=== PATIENT | male | born 1995 | race Caucasian/White ===

== ENCOUNTER 2018-02-11 21:04 | Emergency (ER) | payer OTHER ==
[~2018-02-11] VITALS: Ht 170.2 cm; Wt 76.4 kg
[~2018-02-11 21:04] MED LIST: ONDA4TAB7 SL
[2018-02-11 21:06] VITALS: TEMP 37.7; Ht 170.2 cm; Wt 76.4 kg
[2018-02-11] MEDS ORDERED: KETOROLAC TROMETHAMINE 30 MG/ML VIAL IV STA (21:19)
[2018-02-11] MEDS ORDERED: SODIUM CHLORIDE 0.9% 1000ML 2,000 ML IV STA (21:19)
[2018-02-11] MEDS ORDERED: ACETAMINOPHEN 500 MG TAB PO STA (21:19)
[2018-02-11] MEDS ORDERED: ONDANSETRON INJ 2 MG/ML 2 ML VIAL IV STA (21:19)
--- NOTE | 2018-02-11 21:38 | EMERGENCY ROOM VISIT NOTE ---
History Report prepared by Jeremy: Sameera Vann Under the Supervision of: Dr. Yaya Ram M.D. First contact with patient: 21:14 Chief Complaint: NAUSEA Stated Complaint: NAUSEA History of Present Illness The patient is a 22 year old male who presents to the Emergency Room with complaints of intermittent abdominal pain since this morning. He rates his abdominal pain a 7/10 in severity. He states that he felt nauseated this morning and has been vomiting. He notes that he cannot keep anything down. He notes that his abdominal pain seems to resolve after he vomits. He has chills and a low grade fever. He denies any diarrhea. He denies any underlying medical problems. He reports a headache, for which he has taken Aleve. He currently rates his headache a 4/10 in severity. He denies any sore throat. The patient' s girlfriend has had vomiting and diarrhea for 36 hours, which has resolved for at least two days. She states that she did not vomit as much and she was not hospitalized. Source of History: patient, spouse/significant other Onset: since this morning Position: abdomen Symptom Intensity: 7/10 Timing: intermittent Associated Symptoms: + fevers, + chills, + headache, + nausea, + vomiting, No sorethroat, No diarrhea Review of Systems See HPI for pertinent positives & negatives. A total of 10 systems reviewed and were otherwise negative. Past Medical & Surgical Medical Problems: (1) Abdominal pain (2) Acute gastroenteritis (3) Asthma (4) Nausea, vomiting, and diarrhea Family History No significant family history Social History Smoking Status: Never Smoker (1 can a day) Smokeless Tobacco Use: Yes Alcohol Use: heavy (1 beer a night) Marital Status: in relationship Housing Status: lives with significant other Occupation Status: employed Current/Historical Medications Scheduled Ondasetron Odt (Zofran Odt), 4 MG SL Q6H Allergies Coded Allergies: Amoxicillin (Verified Allergy, Intermediate, agitated, 02/11/18) Physical Exam Vital Signs Date Time Temp Pulse Resp B/P (MAP) Pulse Ox O2 Delivery O2 Flow Rate FiO2 02/11/18 22:34 88 18 110/65 99 Room Air 02/11/18 21:06 37.7 108 20 106/67 98 Room Air Physical Exam GENERAL: Patient is in no acute distress. HEENT: No acute trauma, normocephalic atraumatic, mucous membranes moist, no nasal congestion, no scleral icterus. No throat erythema or exudate. NECK: No stridor, no adenopathy, no meningismus, trachea is midline. LUNGS: Clear to auscultation bilaterally, no wheeze, no rhonchi, breath sounds equal. HEART: Without murmurs, tachycardic rate and regular rhythm. ABDOMEN: Soft, bowel sounds positive, no hernias, no peritonitis. Diffusely midly tender abdomen. EXTREMITIES: No cyanosis or edema, full range of motion of all the joints without pain or difficulty, no signs for acute trauma. NEUROLOGIC: Oriented x 3, no acute motor or sensory deficits, no focal weakness. SKIN: No rash, no jaundice, no diaphoresis. Medical Decision & Procedures ER Provider Diagnostic Interpretation: Radiology results as stated below per my review and radiologist interpretation: PA CHEST WITH ABDOMINAL SERIES CLINICAL HISTORY: Generalized abdominal pain. FINDINGS: A PA chest radiograph is obtained. No prior studies are available for comparison at the time of dictation. The cardiomediastinal silhouette is unremarkable. The lungs and pleural spaces are clear. No pneumothorax is seen. The bony thorax is grossly intact. Supine and erect abdominal radiographs are correlated with abdominal CT dated 04/28/2015. There is a nonobstructed abdominal bowel gas pattern. No evidence of intraperitoneal free air is seen. There are no abnormal abdominal calcifications. The lumbosacral spine and bony pelvis appear intact. IMPRESSION: 1. No active disease in the chest. 2. Nonobstructed abdominal bowel gas pattern. Electronically signed by: Yaya Ag M.D. 02/11/2018 10:01 PM Dictated Date/Time: 02/11/2018 10:00 PM Laboratory Results 02/11/18 21:30 Red Blood Count 5.56, Mean Corpuscular Volume 86.9, Mean Corpuscular Hemoglobin 32.0, Mean Corpuscular Hemoglobin Concent 36.9, Mean Platelet Volume 11.5, Neutrophils (%) (Auto) 89.4, Lymphocytes (%) (Auto) 4.9, Monocytes (%) (Auto) 4.4, Eosinophils (%) (Auto) 0.9, Basophils (%) (Auto) 0.1, Neutrophils # (Auto) 8.74, Lymphocytes # (Auto) 0.48, Monocytes # (Auto) 0.43, Eosinophils # (Auto) 0.09, Basophils # (Auto) 0.01 02/11/18 21:30 Test 02/11/18 21:30 White Blood Count 9.78 K/uL (4.8-10.8) Red Blood Count 5.56 M/uL (4.7-6.1) Hemoglobin 17.8 g/dL (14.0-18.0) Hematocrit 48.3 % (42-52) Mean Corpuscular Volume 86.9 fL (80-100) Mean Corpuscular Hemoglobin 32.0 pg (25-34) Mean Corpuscular Hemoglobin Concent 36.9 g/dl (32-36) Platelet Count 139 K/uL (130-400) Mean Platelet Volume 11.5 fL (7.4-10.4) Neutrophils (%) (Auto) 89.4 % Lymphocytes (%) (Auto) 4.9 % Monocytes (%) (Auto) 4.4 % Eosinophils (%) (Auto) 0.9 % Basophils (%) (Auto) 0.1 % Neutrophils # (Auto) 8.74 K/uL (1.4-6.5) Lymphocytes # (Auto) 0.48 K/uL (1.2-3.4) Monocytes # (Auto) 0.43 K/uL (0.11-0.59) Eosinophils # (Auto) 0.09 K/uL (0-0.5) Basophils # (Auto) 0.01 K/uL (0-0.2) RDW Standard Deviation 38.8 fL (36.4-46.3) RDW Coefficient of Variation 12.1 % (11.5-14.5) Immature Granulocyte % (Auto) 0.3 % Immature Granulocyte # (Auto) 0.03 K/uL (0.00-0.02) Anion Gap 8.0 mmol/L (3-11) Est Creatinine Clear Calc Drug Dose 110.4 ml/min Estimated GFR () 125.7 Estimated GFR (Non- 108.4 BUN/Creatinine Ratio 17.5 (10-20) Calcium Level 8.6 mg/dl (8.5-10.1) Total Bilirubin 1.1 mg/dl (0.2-1) Aspartate Amino Transf (AST/SGOT) 14 U/L (15-37) Alanine Aminotransferase (ALT/SGPT) 21 U/L (12-78) Alkaline Phosphatase 61 U/L (45-117) Total Protein 8.1 gm/dl (6.4-8.2) Albumin 4.3 gm/dl (3.4-5.0) Globulin 3.8 gm/dl (2.5-4.0) Albumin/Globulin Ratio 1.1 (0.9-2) Lipase 81 U/L (73-393) Laboratory results reviewed by me. Medications Administered Medications (Trade) Dose Ordered Sig/Jimy Route Start Time Stop Time Status Last Admin Dose Admin Sodium Chloride 2,000 ml @ 999 mls/hr Q2H1M STAT IV 02/11/18 21:19 02/11/18 23:19 DC 02/11/18 21:56 999 MLS/HR Ondansetron HCl (Zofran Inj) 4 mg NOW STAT IV 02/11/18 21:19 02/11/18 21:21 DC 02/11/18 21:54 4 MG Ketorolac Tromethamine (Toradol Inj) 30 mg NOW STAT IV 02/11/18 21:19 02/11/18 21:21 DC 02/11/18 21:55 30 MG Acetaminophen (Tylenol Tab) 1,000 mg NOW STAT PO 02/11/18 21:19 02/11/18 21:21 DC 02/11/18 21:56 1,000 MG Ondansetron HCl (ZOFRAN ODT 4MG Home Pack) 1 homepack UD ONCE PO 02/11/18 22:45 02/11/18 22:46 DC 02/11/18 22:57 1 HOMEPACK ED Course 2115: The patient was evaluated in room B7. A complete history and physical exam was performed. 2118: Ordered Tylenol 1,000 mg PO, Toradol 30 mg IV, Zofran 4 mg IV, and Sodium Chloride 2,000 ml @ 999 mls/hr IV 2237: I reassessed the patient at this time. He is feeling better and resting comfortably. I discussed the results and treatment plan with the patient. I answered all pertaining questions that he had. He expressed understanding and verbalized agreement. The patient will be discharged home. 2244: Ordered Zofran 1 homepack PO Medical Decision The patient is a 22 year old male who presents to the ED with complaints of abdominal pain. Differential diagnoses considered include dehydration, viral illness, foodborne illness, anemia, bowel obstruction, appendicitis, and electrolyte abnormality. There is no leukocytosis or concerning anemia. No significant electrolyte abnormality, kidney failure or hepatitis. Obstruction series does not show bowel obstruction, free air or pneumonia. On exam, there was no peritonitis. The patient received oral Tylenol, IV Toradol, IV saline and IV Zofran, he feels markedly improved. I suspect this illness is viral, his girlfriend had something similar very recently. Patient is stable for discharge. He was given a prescription for Zofran, [id number] medications for fever and pain were suggested, a bland diet was suggested. If worsening or not continuing to improve, he will return for reassessment. Medication Reconcilliation Current Medication List: was personally reviewed by me Blood Pressure Screening Patient's blood pressure: Normal blood pressure Impression Primary Impression: Nausea and vomiting Additional Impression: Dehydration Scribe Attestation The scribe's documentation has been prepared under my direction and personally reviewed by me in its entirety. I confirm that the note above accurately reflects all work, treatment, procedures, and medical decision making performed by me. Departure Information Dispostion Home / Self-Care Prescriptions Ondasetron Odt (ZOFRAN ODT) 4 Mg Tab 4 MG SL Q6H for Nausea, #10 TAB Prov: Yaya Ram M.D. 02/11/18 Referrals No Doctor, Assigned (PCP) Forms HOME CARE DOCUMENTATION FORM, IMPORTANT VISIT INFORMATION Patient Instructions [facility] Additional Instructions fluids rest tylenol or aleve for fever and aches bland diet---crackers, soup, toast, gatorade, rice zofran 1 tab every 6 hours for nausea as needed return if worsening as we discussed--return for worsening abdominal pain Problem Qualifiers
[2018-02-11 21:46] LABS: BASO % 0.1 %; BASO ABS # 0.01 K/uL (0-0.2); EOS % 0.9 %; EOS ABS # 0.09 K/uL (0-0.5); HEMATOCRIT 48.3 % (42-52); HEMOGLOBIN 17.8 g/dL (14.0-18.0); IG# 0.03 K/uL (0.00-0.02); LYMPH % 4.9 %; LYMPH ABS # 0.48 K/uL (1.2-3.4); MEAN CELL VOLUME 86.9 fL (80-100); MEAN CORPUSCULAR HGB CONC 36.9 g/dl (32-36); MEAN PLATELET VOLUME 11.5 fL (7.4-10.4); MONO % 4.4 %; MONO ABS # 0.43 K/uL (0.11-0.59); NEUT % 89.4 %; NEUT ABS # 8.74 K/uL (1.4-6.5); PLATELET COUNT 139 K/uL (130-400); RED CELL DISTRIBUTION WIDTH CV 12.1 % (11.5-14.5); RED CELL DISTRIBUTION WIDTH SD 38.8 fL (36.4-46.3); WHITE BLOOD COUNT 9.78 K/uL (4.8-10.8)
--- NOTE | 2018-02-11 22:03 | DIAGNOSTIC IMAGING REPORT ---
PA CHEST WITH ABDOMINAL SERIES CLINICAL HISTORY: Generalized abdominal pain. FINDINGS: A PA chest radiograph is obtained. No prior studies are available for comparison at the time of dictation. The cardiomediastinal silhouette is unremarkable. The lungs and pleural spaces are clear. No pneumothorax is seen. The bony thorax is grossly intact. Supine and erect abdominal radiographs are correlated with abdominal CT dated 04/28/2015. There is a nonobstructed abdominal bowel gas pattern. No evidence of intraperitoneal free air is seen. There are no abnormal abdominal calcifications. The lumbosacral spine and bony pelvis appear intact. IMPRESSION: 1. No active disease in the chest. 2. Nonobstructed abdominal bowel gas pattern. Electronically signed by: Yaya Ag M.D. 02/11/2018 10:01 PM Dictated Date/Time: 02/11/2018 10:00 PM
[2018-02-11 22:12] LABS: ALBUMIN 4.3 gm/dl (3.4-5.0); CALCIUM 8.6 mg/dl (8.5-10.1); CREATININE 0.99 mg/dl (0.60-1.40); POTASSIUM 3.7 mmol/L (3.5-5.1)
[2018-02-11 22:14] LABS: TOTAL PROTEIN 8.1 gm/dl (6.4-8.2)
[2018-02-11 22:34] VITALS: BP 110/65; PULSE 88; O2SAT 99
[2018-02-11] MEDS ORDERED: ONDA4TAB10 SL (22:42)
[2018-02-11] MEDS ORDERED: ONDANSETRON HOME PACK 4MG OD TAB PO ONE (22:45)
== END 2018-02-11 23:02 | disposition home or self-care (01) ==
LOC: C.EDB 21:05
DX: R11.2 Nausea with vomiting, unspecified (principal); E86.0 Dehydration; J45.909 Unspecified asthma, uncomplicated; Z88.1 Allergy status to other antibiotic agents